=== PATIENT | male | born 1990 | race Caucasian/White ===

== ENCOUNTER 2018-06-13 08:46 | Emergency (ER) | payer MEDICAID ==
--- NOTE | 2018-06-13 08:54 | EDM.PDOC ---
ED HPI GENERAL MEDICAL PROBLEM - General Chief Complaint: Respiratory Problem Stated Complaint: [id number] BAD CHEST PAIN SHALLOW Time Seen by Provider: 06/13/18 08:53 Source of Information: Reports: Patient, RN, RN Notes Reviewed History Limitations: Reports: No Limitations - History of Present Illness INITIAL COMMENTS - FREE TEXT/NARRATIVE: Pt to ER with c/o pain in the chest and back. Patient states he has had the chills and and upper respiratory infection, cough for a while, and he thought it was getting better. Yesterday he began having the chills and increased pain. He states it feels as if his muscles are tearing away from his ribs, and that his ribs may be out of place. Patient admits to smoking. He admits to nausea, but denies vomiting and diarrhea. Patient denies fever. Admits to CP and SOB. Denies being exposed to chemicals, denies trauma or injury, lifting heavy objects. Onset: Gradual Duration: Constant, Getting Worse Location: Reports: Chest, Back Quality: Reports: Sharp, Stabbing Improves with: Reports: None Chest Pain Score (Numeric/FACES): 7 - Related Data Allergies Allergy/AdvReac Type Severity Reaction Status Date / Time No Known Allergies Allergy Verified 06/13/18 08:54 Home Meds: Home Meds . [No Known Home Meds] 06/13/18 [History] ED ROS GENERAL - Review of Systems Review Of Systems: ROS reveals no pertinent complaints other than HPI. ED EXAM, GENERAL - Physical Exam Exam: See Below Exam Limited By: No Limitations General Appearance: Alert, WD/WN, Moderate Distress Eye Exam: Bilateral Eye: EOMI, Normal Inspection Ears: Normal External Exam, Hearing Grossly Normal Nose: Normal Inspection Throat/Mouth: Normal Inspection, Normal Lips, Normal Teeth, Normal Gums, Normal Voice, No Airway Compromise Head: Atraumatic, Normocephalic Neck: Normal Inspection, Supple, Non-Tender, Full Range of Motion Respiratory/Chest: Decreased Breath Sounds, Crackles (bilaterally), Rhonchi ( bilaterally), Accessory Muscle Use. No: Chest Non-Tender (tenderness laterally bilaterally) Cardiovascular: Normal Peripheral Pulses, Regular Rate, Rhythm, No Edema, No Gallop, No JVD, No Murmur, No Rub Peripheral Pulses: 2+: Radial (L), Radial (R) GI/Abdominal: Normal Bowel Sounds, Soft, Non-Tender, No Organomegaly, No Distention (Male) Exam: Deferred Rectal (Males) Exam: Deferred Back Exam: Normal Inspection, Decreased Range of Motion, Muscle Spasm, Other ( Tender to the ribs laterally) Extremities: Normal Inspection, Normal Range of Motion, Non-Tender, No Pedal Edema, Normal Capillary Refill Neurological: Alert, Oriented, CN II-XII Intact, Normal Cognition, Normal Gait, Normal Reflexes, No Motor/Sensory Deficits Psychiatric: Normal Mood, Anxious Skin Exam: Warm, Dry, Intact, Normal Color, No Rash Lymphatic: No Adenopathy EKG INTERPRETATION EKG Date: 06/13/18 Time: 09:48 Rhythm: NSR Rate (Beats/Min): 61 [place]: Normal P-Wave: Present QRS: Normal ST-T: Normal QT: Normal Comparison: NA - No Prior EKG Course - Vital Signs Last Recorded V/S: Last Vital Signs Temp 100 F 06/13/18 08:50 Pulse 75 06/13/18 08:50 Resp 20 06/13/18 08:50 BP 113/61 06/13/18 08:50 Pulse Ox 99 06/13/18 08:50 - Orders/Labs/Meds Orders: Active Orders 24 hr Category Date Time Status EKG Documentation Completion [RC] STAT Care 06/13/18 09:09 Active Peripheral IV Care [RC] . DIRECTED Care 06/13/18 09:11 Active Chest 2V [CR] Urgent Exams 06/13/18 09:10 Taken CULTURE BLOOD [BC] Stat Lab 06/13/18 09:21 Received CULTURE BLOOD [BC] Stat Lab 06/13/18 09:26 Received DRUG SCREEN URINE BIORAD [URCHEM] Stat Lab 06/13/18 09:52 Ordered INFLUENZA A+B AG SCREEN [RM] Stat Lab 06/13/18 09:29 Ordered UA W/MICROSCOPIC [URIN] Stat Lab 06/13/18 09:52 Ordered Sodium Chloride 0.9% [Saline Flush] Med 06/13/18 09:09 Active 10 ml FLUSH ASDIRECTED PRN Blood Culture x2 Reflex Set [OM.PC] Stat Oth 06/13/18 09:09 Ordered Peripheral IV Insertion Adult [OM.PC] Stat Oth 06/13/18 09:09 Ordered Medication Orders Sodium Chloride (Saline Flush) 10 ml FLUSH ASDIRECTED PRN PRN Reason: Keep Vein Open Last Admin: 06/13/18 09:28 Dose: 10 ml Labs: Laboratory Tests 06/13/18 06/13/18 06/13/18 Range/Units 09:21 09:21 09:21 WBC 9.6 (5.0-10.0) 10^3/uL RBC 4.98 (4.6-6.2) 10^6/uL Hgb 15.7 (14.0-18.0) g/dL Hct 46.1 (40.0-54.0) % MCV 92.6 (80-100) fL MCH 31.5 (27.0-34.0) pg MCHC 34.1 (33.0-35.0) g/dL Plt Count 156 (150-450) 10^3/uL Neut % (Auto) 77.7 H (42.2-75.2) % Lymph % (Auto) 14.2 L (20.5-50.1) % [place] % (Auto) 7.6 (2-8) % Eos % (Auto) 0.3 L (1.0-3.0) % Baso % (Auto) 0.2 (0.0-1.0) % D-Dimer, Quantitative < 100 (0-400) ng/mL Sodium 136 (135-145) mmol/L Potassium 4.2 (3.6-5.0) mmol/L Chloride 100 L (101-111) mmol/L Carbon Dioxide 25.0 (21.0-31.0) mmol/L Anion Gap 15.2 BUN 11 (7-18) mg/dL Creatinine 0.7 (0.6-1.3) mg/dL Est Cr Clr Drug Dosing 131.87 mL/min Estimated GFR (MDRD) > 60 BUN/Creatinine Ratio 15.71 Glucose 91 (74-105) mg/dL Lactic Acid (0.5-2.2) mmol/L Calcium 9.4 (8.4-10.2) mg/dl Total Bilirubin 1.0 (0.2-1.0) mg/dL AST 25 (10-42) IU/L ALT 13 (10-60) IU/L Alkaline Phosphatase 64 (42-121) IU/L Troponin I < 0.02 (0.00-0.02) ng/ml Total Protein 8.0 (6.7-8.2) g/dl Albumin 4.3 (3.2-5.5) g/dl Globulin 3.7 Albumin/Globulin Ratio 1.16 Urine Color (YELLOW) Urine Appearance (CLEAR) Urine pH (5.0-9.0) Ur Specific [place] (1.005-1.030) Urine Protein (NEGATIVE) Urine Glucose (UA) (NEGATIVE) Urine Ketones (NEGATIVE) Urine Occult Blood (NEGATIVE) Urine Nitrite (NEGATIVE) Urine Bilirubin (NEGATIVE) Urine Urobilinogen (0.2-1.0) mg/dL Ur Leukocyte Esterase (NEGATIVE) Urine RBC /HPF Urine WBC (0-5/HPF) /HPF Ur Epithelial Cells /HPF Amorphous Sediment (0/HPF) /HPF Urine Bacteria (0-FEW/HPF) /HPF Urine Mucus /LPF Urine Opiates Screen (NEGATIVE) Ur Oxycodone Screen (NEGATIVE) Urine Methadone Screen (NEGATIVE) Ur Barbiturates Screen (NEGATIVE) U Tricyclic Antidepress (NEGATIVE) Ur Phencyclidine Scrn (NEGATIVE) Ur Amphetamine Screen (NEGATIVE) U Methamphetamines Scrn (NEGATIVE) Urine MDMA Screen (NEGATIVE) U Benzodiazepines Scrn (NEGATIVE) Urine Cocaine Screen (NEGATIVE) U Marijuana (THC) Screen (NEGATIVE) Ethyl Alcohol < 5 mg/dL 06/13/18 06/13/18 06/13/18 Range/Units 09:21 09:52 09:52 WBC (5.0-10.0) 10^3/uL RBC (4.6-6.2) 10^6/uL Hgb (14.0-18.0) g/dL Hct (40.0-54.0) % MCV (80-100) fL MCH (27.0-34.0) pg MCHC (33.0-35.0) g/dL Plt Count (150-450) 10^3/uL Neut % (Auto) (42.2-75.2) % Lymph % (Auto) (20.5-50.1) % [place] % (Auto) (2-8) % Eos % (Auto) (1.0-3.0) % Baso % (Auto) (0.0-1.0) % D-Dimer, Quantitative (0-400) ng/mL Sodium (135-145) mmol/L Potassium (3.6-5.0) mmol/L Chloride (101-111) mmol/L Carbon Dioxide (21.0-31.0) mmol/L Anion Gap BUN (7-18) mg/dL Creatinine (0.6-1.3) mg/dL Est Cr Clr Drug Dosing mL/min Estimated GFR (MDRD) BUN/Creatinine Ratio Glucose (74-105) mg/dL Lactic Acid 1.3 (0.5-2.2) mmol/L Calcium (8.4-10.2) mg/dl Total Bilirubin (0.2-1.0) mg/dL AST (10-42) IU/L ALT (10-60) IU/L Alkaline Phosphatase (42-121) IU/L Troponin I (0.00-0.02) ng/ml Total Protein (6.7-8.2) g/dl Albumin (3.2-5.5) g/dl Globulin Albumin/Globulin Ratio Urine Color Yellow (YELLOW) Urine Appearance Clear (CLEAR) Urine pH 8.0 (5.0-9.0) Ur Specific [place] 1.015 (1.005-1.030) Urine Protein Negative (NEGATIVE) Urine Glucose (UA) Negative (NEGATIVE) Urine Ketones 15 H (NEGATIVE) Urine Occult Blood Negative (NEGATIVE) Urine Nitrite Negative (NEGATIVE) Urine Bilirubin Negative (NEGATIVE) Urine Urobilinogen 0.2 (0.2-1.0) mg/dL Ur Leukocyte Esterase Negative (NEGATIVE) Urine RBC 0-5 /HPF Urine WBC 0-5 (0-5/HPF) /HPF Ur Epithelial Cells Rare /HPF Amorphous Sediment Rare (0/HPF) /HPF Urine Bacteria Rare (0-FEW/HPF) /HPF Urine Mucus Rare /LPF Urine Opiates Screen Positive H (NEGATIVE) Ur Oxycodone Screen Negative (NEGATIVE) Urine Methadone Screen Negative (NEGATIVE) Ur Barbiturates Screen Negative (NEGATIVE) U Tricyclic Antidepress Negative (NEGATIVE) Ur Phencyclidine Scrn Negative (NEGATIVE) Ur Amphetamine Screen Negative (NEGATIVE) U Methamphetamines Scrn Negative (NEGATIVE) Urine MDMA Screen Negative (NEGATIVE) U Benzodiazepines Scrn Negative (NEGATIVE) Urine Cocaine Screen Negative (NEGATIVE) U Marijuana (THC) Screen Positive H (NEGATIVE) Ethyl Alcohol mg/dL Meds: Medications Generic Name Dose Route Start Last Admin Trade Name Freq PRN Reason Stop Dose Admin Sodium Chloride 10 ml 06/13/18 09:09 06/13/18 09:28 Saline Flush FLUSH 10 ml ASDIRECTED PRN Administration Keep Vein Open Discontinued Medications Generic Name Dose Route Start Last Admin Trade Name Doug PRN Reason Stop Dose Admin Morphine Sulfate 2 mg 06/13/18 09:24 06/13/18 09:39 Morphine IVPUSH 06/13/18 09:25 2 mg ONETIME ONE Administration - Radiology Interpretation Free Text/Narrative:: Chest xray: See rad report Departure - Departure Time of Disposition: 10:42 Disposition: Home, Self-Care 01 Condition: Fair Clinical Impression: Bronchitis - Discharge Information *PRESCRIPTION DRUG MONITORING PROGRAM REVIEWED*: Yes *COPY OF PRESCRIPTION DRUG MONITORING REPORT IN PATIENT PIPPA: No Instructions: Shortness of Breath, Adult, [id number], Acute Bronchitis, Adult , [id number] Forms: ED Department Discharge Additional Instructions: RX: Azithromycin, [place] Use incentive spirometry a few times every 1/2 hour Follow up with your primary care facility this week Rest, drink plenty of water - My Orders Last 24 Hours: My Active Orders 06/13/18 09:09 EKG Documentation Completion [RC] STAT Sodium Chloride 0.9% [Saline Flush] 10 ml FLUSH ASDIRECTED PRN Blood Culture x2 Reflex Set [OM.PC] Stat Peripheral IV Insertion Adult [OM.PC] Stat 06/13/18 09:10 Chest 2V [CR] Urgent 06/13/18 09:11 Peripheral IV Care [RC] . DIRECTED 06/13/18 09:21 CULTURE BLOOD [BC] Stat 06/13/18 09:26 CULTURE BLOOD [BC] Stat 06/13/18 09:29 INFLUENZA A+B AG SCREEN [RM] Stat 06/13/18 09:52 DRUG SCREEN URINE BIORAD [URCHEM] Stat UA W/MICROSCOPIC [URIN] Stat - Assessment/Plan Last 24 Hours: My Active Orders 06/13/18 09:09 EKG Documentation Completion [RC] STAT Sodium Chloride 0.9% [Saline Flush] 10 ml FLUSH ASDIRECTED PRN Blood Culture x2 Reflex Set [OM.PC] Stat Peripheral IV Insertion Adult [OM.PC] Stat 06/13/18 09:10 Chest 2V [CR] Urgent 06/13/18 09:11 Peripheral IV Care [RC] . DIRECTED 06/13/18 09:21 CULTURE BLOOD [BC] Stat 06/13/18 09:26 CULTURE BLOOD [BC] Stat 06/13/18 09:29 INFLUENZA A+B AG SCREEN [RM] Stat 06/13/18 09:52 DRUG SCREEN URINE BIORAD [URCHEM] Stat UA W/MICROSCOPIC [URIN] Stat
[2018-06-13] MEDS ORDERED: Sodium Chloride 0.9% 10 ML Syringe FLUSH PRN (09:09)
[2018-06-13] MEDS ORDERED: Morphine 2 MG/ML Syringe IVPUSH ONE (09:24)
[2018-06-13 10:00] LABS: ANION GAP 15.2; CHLORIDE,CL 100 mmol/L (101-111); SODIUM,NA 136 mmol/L (135-145)
== END 2018-06-13 11:00 | disposition home or self-care (01) ==
LOC: DL.ED 08:46
DX: J40 Bronchitis, not specified as acute or chronic (principal)
CPT/HCPCS: 36415; 71046; 80053; 80305; 81001; 83605; 84484; 85025; 85379; 87040; 87804; 93005; 96374; 99285; G0480; J2270; J7050

== ENCOUNTER 2019-01-21 18:14 | Emergency (ER) | payer MEDICAID ==
[2019-01-21] MEDS ORDERED: Acetaminophen/HYDROcodone 325-5 MG Tab PO ONE (18:15)
[2019-01-21] MEDS ORDERED: Ketorolac 30 MG/ML SDV IM ONE (18:25)
[2019-01-21] MEDS ORDERED: Lidocaine 1% with EPINEPHrine 1:100,000 20 ML MDV INJECT ONE (18:25)
[2019-01-21] MEDS ORDERED: Sulfamethoxazole/Trimethoprim 800-160 MG Tab PO ONE (18:48)
--- NOTE | 2019-01-21 18:53 | EDM.PDOC ---
ED HPI GENERAL MEDICAL PROBLEM - General Chief Complaint: Upper Extremity Injury/Pain Stated Complaint: CYST UNDER LEFT ARM [id number] Time Seen by Provider: 01/21/19 18:40 Source of Information: Reports: Patient History Limitations: Reports: No Limitations - History of Present Illness INITIAL COMMENTS - FREE TEXT/NARRATIVE: patient comes emergency department today with complaints of a cyst in his left armpit. Over the past couple of days he has noticed an area of redness swelling and tenderness. He has been putting heat packs to it although it continues to get bigger and becomes more painful. His last tetanus shot was less than 5 years ago.He is unaware of any injury to the area. - Related Data Allergies Allergy/AdvReac Type Severity Reaction Status Date / Time No Known Allergies Allergy Verified 11/27/18 10:56 Home Meds: Home Meds Citalopram [Citalopram HBr] 20 mg PO DAILY 11/27/18 [History] traZODone HCl [Trazodone HCl] 50 mg PO DAILY 11/27/18 [History] Past Medical History HEENT History: Reports: Impaired Vision Other HEENT History: wears glasses Cardiovascular History: Reports: Other (See Below) Other Cardiovascular History: gets chest pains radomly Respiratory History: Reports: None Gastrointestinal History: Reports: GERD Genitourinary History: Reports: None Musculoskeletal History: Reports: Other (See Below) Other Musculoskeletal History: back pain and knee sprain Neurological History: Reports: None Psychiatric History: Reports: Suicide Attempt Other Psychiatric History: when a teenager Endocrine/Metabolic History: Reports: None Hematologic History: Reports: None Immunologic History: Reports: None Oncologic (Cancer) History: Reports: None Dermatologic History: Reports: Eczema Social & Family History - Family History Family Medical History: Noncontributory - Tobacco Use Smoking Status *Q: Current Every Day Smoker Years of Tobacco use: 15 Packs/Tins Daily: 0.5 - Caffeine Use Caffeine Use: Reports: Coffee - Recreational Drug Use Recreational Drug Use: No Review of Systems - Review of Systems Review Of Systems: ROS reveals no pertinent complaints other than HPI. ED EXAM, GENERAL - Physical Exam Exam: See Below Exam Limited By: No Limitations General Appearance: Alert, WD/WN, No Apparent Distress Respiratory/Chest: No Respiratory Distress Cardiovascular: Normal Peripheral Pulses Peripheral Pulses: 2+: Radial (L), Radial (R) Extremities: Normal Inspection, No Pedal Edema Neurological: Alert, Oriented Skin Exam: Warm, Dry, Intact, Normal Color, Other (in the patient's medial aspect of the left arm pit. There is an area about the size of a golf ball of redness erythema induration and tenderness. There is a central area that has a small amount of drainage with a what appears to be ruptured pustule.There is quite a bit us erythema surrounding this area of abscess. That was outlined.) ED TRAUMA EXTREMITY PROCEDURES - I&D Site: left anterior arm pit Skin Prep: Providone-Iodine (Betadine) Local Anesthesia: Lidocaine: 1% with EPI Local Anesthetic Volume: 5cc Area Incised With: 11 Blade Drainage: Purulent, Bloody, Small Amount Probed to Break Up Loculations: Yes Packed With: 1/4 in. Iodoform (lightly packed to stay open. ) Sterile Dressing: Adhesive Dressing, 4x4(s) Complications: No Course - Vital Signs Last Recorded V/S: Last Vital Signs Temp 37.0 C 01/21/19 18:21 Pulse 105 H 01/21/19 18:21 Resp 18 01/21/19 18:21 BP 151/101 H 01/21/19 18:21 Pulse Ox 100 01/21/19 18:21 - Orders/Labs/Meds Orders: Active Orders 24 hr Category Date Time Status CULTURE WOUND [RM] Stat Lab 01/21/19 18:41 Received Meds: Medications Discontinued Medications Generic Name Dose Route Start Last Admin Trade Name Bernardq PRN Reason Stop Dose Admin Hydrocodone Bitart/Acetaminophen Confirm 01/21/19 18:57 01/21/19 19:02 [place] 325-10 Mg Administered 01/21/19 18:58 Not Given Dose 3 tab .ROUTE .STK-MED ONE Ketorolac Tromethamine 60 mg 01/21/19 18:25 01/21/19 18:29 Toradol IM 01/21/19 18:26 60 mg ONETIME ONE Administration Lidocaine/Epinephrine 20 ml 01/21/19 18:25 01/21/19 18:30 Xylocaine 1% With Epinephrine 1:100,000 INJECT 01/21/19 18:26 20 ml ONETIME ONE Administration Trimethoprim/Sulfamethoxazole 1 tab 01/21/19 18:48 01/21/19 19:01 Septra Ds PO 01/21/19 18:49 1 tab ONETIME ONE Administration - Re-Assessments/Exams Free Text/Narrative Re-Assessment/Exam: 01/21/19 20:46 verbal consent for I& D see procedure note. Ketorolac 60mg IM Bactrim PO. Departure - Departure Time of Disposition: 18:55 Disposition: Home, Self-Care 01 Clinical Impression: Abscess - Discharge Information Instructions: Skin Abscess, Incision and Drainage, Care After, Pain Medicine Instructions, [id number] Referrals: PCP,None [Ordering Only Provider] - Forms: ED Department Discharge Additional Instructions: Tylenol and or Ibuprofen as needed for pain. If pain not controlled with above. [place], 1 tablet every 6 hrs as needed for pain. Caution sedation. 3 sent home from the ED. Warm packs to the area of the arm pit as much as possible until healed. Remove the packing after 24 hrs and do not repack. Bactrim, 1 tablet twice daily for the next 7 days. RX given to the patient. Return to the ED if new or worsening symptoms Follow up with PCP in the next 4-6 days if not improving sooner if worse. - My Orders Last 24 Hours: My Active Orders 01/21/19 18:41 CULTURE WOUND [RM] Stat - Assessment/Plan Last 24 Hours: My Active Orders 01/21/19 18:41 CULTURE WOUND [RM] Stat Assessment:: Abscess left arm pit I&D of the left abscess in the arm pit. Plan: Tylenol and or Ibuprofen as needed for pain. If pain not controlled with above. [place], 1 tablet every 6 hrs as needed for pain. Caution sedation. 3 sent home from the ED. Warm packs to the area of the arm pit as much as possible until healed. Remove the packing after 24 hrs and do not repack. Bactrim, 1 tablet twice daily for the next 7 days. RX given to the patient. Return to the ED if new or worsening symptoms Follow up with PCP in the next 4-6 days if not improving sooner if worse.
[2019-01-21] MEDS ORDERED: Acetaminophen/HYDROcodone 325-10 MG Tab ONE (18:57)
== END 2019-01-21 19:03 | disposition home or self-care (01) ==
LOC: DL.ED 18:14 → EEVIPCON 18:14 → DL.ED 19:03
DX: L02.412 Cutaneous abscess of left axilla (principal); F17.210 Nicotine dependence, cigarettes, uncomplicated; Z79.899 Other long term (current) drug therapy
CPT/HCPCS: 10060; 87070; 96372; 99283; A9270; J1885; 87077; 87186